=== PATIENT | male | born 1955 | race Caucasian/White ===

== ENCOUNTER 2018-10-10 17:47 | Emergency (ER) | payer OTHER, MEDICARE ==
--- NOTE | 2018-10-10 18:03 | EDPHY ---
H & P Time Seen by Provider: 10/10/18 18:03 HPI/ROS: CHIEF COMPLAINT: Epigastric abdominal pain, lower chest pain HISTORY OF PRESENT ILLNESS: Patient was at home at 4:30 p.m. Getting ready to return a car down in [place] when he started getting pain in his epigastric area and his lower sternum. He describes it as a dull cramp. Associated with nausea vomiting x1 and possibly specks of blood. He had associated feeling of being hot sweaty and shaky. Did not radiate, not short of breath, no injury or trauma. No diarrhea. No coughing. Symptoms moderate at this time. Does not radiate to the back. REVIEW OF SYSTEMS: Eye: no change in vision ENT: no sore throat Cardiac: HPI Pulmonary: no cough or SOB Abdomen: HPI Musculoskeletal: no back pain, no recent fall/injury/trauma Skin: no rash Neuro: no headache Constitutional: no fever : no urinary symptoms A comprehensive 10 point review of systems is otherwise negative aside from elements mentioned in the history of present illness. PAST MEDICAL HISTORY: Includes hypertension, hypothyroid, hemorrhoidectomy, bilateral hernia surgery in July by Dr. Womack Social history: Nonsmoker, occasional alcohol. General Appearance: Alert and conversant, cooperative. Eyes: No scleral icterus. ENT, Mouth: Normal mucous membranes. Respiratory: Normal respiratory effort, breath sounds equal, lungs are clear to auscultation. Speaks in full sentences. Cardiovascular: Regular rate and rhythm. Gastrointestinal: Mild epigastric tenderness but negative for rebound or guarding, no McBurney's point tenderness. Negative Shipley's. No hernia. Neurological: Alert, face symmetric, normal motor and sensory in extremities. Ambulatory. Skin: Warm and dry, no rashes. Musculoskeletal: No peripheral edema. Psychiatric: Not agitated. Emergency Department course/MDM: Declined pain medication. Noted to be hypertensive. EKG shows Q-wave in 3 and F but no acute ST changes. Plan for chest x-ray, labs to include LFT lipase and troponin. Zofran 4 mg IV for nausea. 1955: Results discussed. Feels a little bit better. Planned is CT angio chest to evaluate for dissection with very lower chest and upper abdomen symptoms without alternative diagnosis and severe hypertension. At this point he said he had a little bit of "kaleidoscope" vision in the right side of his visual field which has now completely resolved. 2123: 10 mg IV Reglan. 2nd troponin is also negative. Patient is still having epigastric and chest discomfort. 2154: On physical examination his abdomen is soft and nontender. He still has some abdominal pain but would like to try and go home and see what happens. I think it is unlikely he is having an acute surgical abdominal process at this time. Warned about unlikely but not completely excluded possibility of early appendicitis, will return or followup with PCP if not improving or worse or new symptoms in next [address] scan has certainly also included his upper abdomen which is the location of his symptoms just underneath the lower sternum and just above his epigastrium. ACS was considered but I think it is unlikely at this time. HEART score 2 for age, 1 for HTN, 0 for history, 0 for troponin and EKG. More likely GI, reflux or other gastrointestinal. Emphasized to patient definitive diagnosis not reached in ED evaluation, he states understanding. Smoking Status: Never smoked Constitutional: Initial Vital Signs Temperature (C) 36.7 C 10/10/18 17:52 Heart Rate 60 10/10/18 17:52 Respiratory Rate 18 10/10/18 17:52 Blood Pressure 180/102 H 10/10/18 17:52 O2 Sat (%) 99 10/10/18 17:52 O2 Delivery Mode Room Air Allergies/Adverse Reactions: No Known Allergies Allergy (Verified 10/10/18 17:52) Home Medications: Medication Instructions Recorded Metoprolol Succinate 04/13/16 Synthroid 04/13/16 Valsartan 04/13/16 Medical Decision Making - Diagnostics EKG Interpretation: 12-lead EKG interpreted by me; official reading is in computer system. My interpretation is sinus rhythm rate 53 with inferior Q-waves noted in 3 and AVF. Imaging: I viewed and interpreted images myself - Data Points Laboratory Results: Laboratory Results 10/10/18 18:00 10/10/18 18:00 Medications Given: Discontinued Medications Al Hydroxide/Mg Hydroxide (Maalox Susp) 30 ml PO ONCE ONE Stop: 10/10/18 19:56 Last Admin: 10/10/18 20:08 Dose: 30 ml Hyoscyamine Sulfate (Levsin, Hyomax-Sl) 0.25 mg PO ONCE ONE Stop: 10/10/18 19:56 Last Admin: 10/10/18 20:08 Dose: 0.25 mg Sodium Chloride (Ns) 1,000 mls @ 0 mls/hr IV EDNOW ONE; Wide Open PRN Reason: Protocol Stop: 10/10/18 18:16 Last Admin: 10/10/18 18:42 Dose: 1,000 mls Lidocaine (Lidocaine 2% Viscous) 15 ml PO ONCE ONE Stop: 10/10/18 19:56 Last Admin: 10/10/18 20:08 Dose: 15 ml Metoclopramide HCl (Reglan Injection) 10 mg IVP EDNOW ONE Stop: 10/10/18 21:00 Last Admin: 10/10/18 21:22 Dose: 10 mg Ondansetron HCl (Zofran) 4 mg IVP EDNOW ONE Stop: 10/10/18 18:16 Last Admin: 10/10/18 18:42 Dose: 4 mg Point of Care Test Results: Chemistry 10/10/18 10/10/18 21:12 18:27 POC Troponin I 0.01 ng/mL ng/mL 0.01 ng/mL ng/mL (0.00-0.08) (0.00-0.08) Departure - Departure Disposition: Home, Routine, Self-Care Clinical Impression: Abdominal pain Qualifiers: Abdominal location: epigastric Qualified Code(s): R10.13 - Epigastric pain Hypertension Qualifiers: Hypertension type: unspecified Qualified Code(s): I10 - Essential (primary) hypertension Condition: Good Instructions: Gastroesophageal Reflux Disease (ED), Acute Abdominal Pain (ED) Additional Instructions: Your CT scan did not show any dissection or tear in the blood vessels your chest. Please follow-up with your doctor in the next 24-48 hours. Referrals: Marcin Curry MD [Primary Care Provider] - As per Instructions
[2018-10-10] MEDS ORDERED: ONDANSETRON 4 MG/2 ML VIAL IVP ONE (18:15)
[2018-10-10] MEDS ORDERED: NS 1,000 ML IV ONE (18:15)
--- NOTE | 2018-10-10 18:18 | CPEKG ---
Test Reason : OPEN Blood Pressure : / mmHG Vent. Rate : 053 BPM Atrial Rate : 053 BPM P-R Int : 170 ms QRS Dur : 098 ms QT Int : 412 ms P-R-T Axes : 016 -19 -04 degrees QTc Int : 387 ms Sinus rhythm Inferior infarct, old Confirmed by Wade Morgan ([id number]) on 10/10/2018 6:17:43 PM Referred By: WADE MORGAN Confirmed By:Wade Morgan
[2018-10-10 18:49] LABS: PLATELET COUNT 210 10^3/uL (150-400)
[2018-10-10] MEDS ORDERED: HYOSCYAMINE SULFATE 0.125 MG TAB PO ONE (19:55)
[2018-10-10] MEDS ORDERED: LIDOCAINE 2% VISCOUS 15 ML UDCUP PO ONE (19:55)
[2018-10-10] MEDS ORDERED: MAG HYDROX/AL HYDROX/SIMETH 30 ML UDCUP PO ONE (19:55)
[2018-10-10] MEDS ORDERED: IOPAMIDOL (ISOVUE 370) 100 ML BTL IV ONE (20:11)
[2018-10-10] MEDS ORDERED: METOCLOPRAMIDE 10 MG/2 ML VIAL IVP ONE (20:59)
[2018-10-10 22:17] VITALS: BP 160/100
== END 2018-10-10 22:17 | disposition home or self-care (01) ==
DX: R10.13 Epigastric pain (principal); I10 Essential (primary) hypertension; E03.9 Hypothyroidism, unspecified
CPT/HCPCS: 71046; 71275; 93005; 96374; 96375; 99285; J2405; J2765; Q9967; 84484-ER